=== PATIENT | female | born 1995 | race Caucasian/White ===

== ENCOUNTER → 2016-09-18 | Outpatient (CLI) | payer BC ==
--- NOTE | 2016-09-18 11:09 | DIAGNOSTIC IMAGING REPORT ---
CERVICAL FLEX/EXT CSF CLINICAL HISTORY: 20 years-old Female presenting with CLOSED NON DISPLACED FRACTURE OF 7TH CERVICAL, history of fall from horse one and a half months ago, concern for mechanical instability. TECHNIQUE: Multisequence, multiplanar MR imaging of the cervical spine was performed without the use of intravenous contrast. Flexion and extension positioning was utilized. IV contrast: None. COMPARISON: None. FINDINGS: Normal cervical lordosis. Vertebral bodies maintain normal height, alignment, and bone marrow signal intensity. Flexion and extension positioning does not result in significant subluxation. Posterior spinal cord abutment by the ligamentum flavum on extension positioning at C5 is likely within the range of normal. No complete effacement of CSF to suggest spinal cord impingement. Intervertebral discs preserved. The C7 vertebral body level does not demonstrate bony or ligamentous edema or diastases of the zygapophyseal joints. No significant spinal canal or neural foraminal narrowing. No significant degenerative change. Craniocervical junction normal. Focal increased signal intensity within the right posterior lateral spinal cord at C3 (series 7 image 5; series 8 image 5). This is not visualized on sagittal imaging. Spinal cord otherwise maintains normal morphology and signal intensity. Paraspinal soft tissues within normal limits. IMPRESSION: 1. No evidence of acute osseous or ligamentous injury. No evidence of instability on flexion and extension positioning. No significant spinal canal or neural foraminal narrowing. 2. Apparent focus of increased signal intensity within the right posterior lateral spinal cord at C3. This is nonspecific is of uncertain etiology. Correlate for symptomatology. This could be followed if clinically warranted. Electronically signed by: Sathish Bonilla M.D. 09/18/2016 11:07 AM Dictated Date/Time: 09/18/2016 11:01 AM
== END | disposition home or self-care (01) ==
LOC: C.MRIBC 08:49
PROVIDERS: ATTEND Neurological Surgery
DX: S12.601A Unspecified nondisplaced fracture of seventh cervical vertebra, initial encounter for closed fracture (principal); X58.XXXA Exposure to other specified factors, initial encounter